=== PATIENT | male | born 1970 | race Caucasian/White ===

== ENCOUNTER 2017-05-16 20:43 | Emergency (ER) | payer SELFPAY ==
[~2017-05-16 20:43] MED LIST: PREDNISONE20 MG PO
== END 2017-05-16 21:19 | disposition left against medical advice (07) ==
LOC: ED 20:43
DX: Z53.21 Procedure and treatment not carried out due to patient leaving prior to being seen by health care provider (principal)

== ENCOUNTER 2024-09-13 07:12 | Emergency (ER) | payer OTHER ==
[~2024-09-13] VITALS: Ht 188 cm; Wt 93.9 kg
[~2024-09-13 07:12] MED LIST changes: +AMOX TR-K CLV1 EAC1 PO; +NEURONTIN100 MG PO; +SKYRIZI PE150 MG/1 M
--- OUTSIDE RECORDS SUMMARY | 2024-09-13 07:18 | XMS ---
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 E.D. VISIT COUNT (12 MO.) 2 DEEPIKA Reaves TOTAL 2 NOTE: Visits indicate total known visits. ED/UCC VISIT TRACKING (12 MO.) 09/13/2024 07:13 DEEPIKA Camacho [place] TYPE: Emergency COMPLAINT: - FACIAL SWELLING 12/16/2023 18:26 DEEPIKA Camacho [place] TYPE: Emergency COMPLAINT: - FOREIGN OBJECT IN THUMB DIAGNOSES: - Contact with other powered hand tools and household machinery, initial encounter - Nicotine dependence, unspecified, uncomplicated - Puncture wound with foreign body of left thumb without damage to nail, initial encounter - Unspecified injury of left wrist, hand and finger(s), initial encounter INPATIENT VISIT TRACKING (12 MO.) No inpatient visits to display in this time frame [email or web address]
[2024-09-13] MEDS ORDERED: predniSONE 20 MG TAB PO ONE (07:45)
[2024-09-13] MEDS ORDERED: hydrOXYzine pamoate 25 MG CAP PO ONE (07:45)
[2024-09-13] MEDS ORDERED: METHYLPREDNISOLO4 M1 PO (07:47)
[2024-09-13] MEDS ORDERED: HYDROCORTISONE59 ML TOP (07:47)
[2024-09-13] MEDS ORDERED: HYDROXYZINE HCL25 MG PO (07:47)
[2024-09-13 07:53] VITALS: BP 129/87
== END 2024-09-13 07:53 | disposition home or self-care (01) ==
LOC: ED 07:12
DX: L25.9 Unspecified contact dermatitis, unspecified cause (principal); F17.200 Nicotine dependence, unspecified, uncomplicated; Z79.899 Other long term (current) drug therapy
CPT/HCPCS: 99282; J7512; Q0177